=== PATIENT | female | born 2000 | race Caucasian/White ===

== ENCOUNTER 2020-07-16 23:04 | Emergency (ER) | payer MEDICAID, SELFPAY ==
[2020-07-16 23:05] VITALS: BP 108/74; PULSE 100; RESP 20; TEMP 36.8; O2SAT 100; BMI 22.6
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
[2020-07-17] MEDS: Cyclobenzaprine HCl 10 MG TABLET PO (00:26)
[2020-07-17] MEDS: LORazepam 0.5 MG TABLET PO (00:27)
== END 2020-07-17 00:43 | disposition home or self-care (01) ==
PROVIDERS: Emergency Provider Student in an Organized Health Care Education/Training Program
DX: S16.1XXA Strain of muscle, fascia and tendon at neck level, initial encounter (principal); M54.5 Low back pain; M54.2 Cervicalgia; X58.XXXA Exposure to other specified factors, initial encounter; Y93.9 Activity, unspecified; Y92.009 Unspecified place in unspecified non-institutional (private) residence as the place of occurrence of the external cause; Y99.9 Unspecified external cause status; Z79.899 Other long term (current) drug therapy
CPT/HCPCS: 99283; 99284

== ENCOUNTER 2020-11-23 21:10 | Emergency (ER) | payer MEDICAID, SELFPAY ==
[2020-11-23 21:15] VITALS: BP 128/60; PULSE 83; RESP 18; TEMP 36.6; O2SAT 100
[2020-11-23 21:34] VITALS: PULSE 82
--- NOTE | 2020-11-23 21:34 | PC.NURSE ---
Upon entering patient's room to perform triage assessment, patient left room to use bathroom. Ambulated with steady gait out of bed. already evaluated patient and reports that neuros are intact, speech is clear, and this RN witnessed steady ambulation. Per , pt has significant hx of panic attacks & anxiety . Will triage & perform RN evaluation upon return to ED bed.
[2020-11-23 21:42] VITALS: BP 117/71
[2020-11-23 21:45] VITALS: BP 127/74; PULSE 87
[2020-11-23 21:50] VITALS: BP 128/60; BP 131/68; PULSE 82; PULSE 83; RESP 16; RESP 18; TEMP 36.6; TEMP 37.1; O2SAT 100; O2SAT 99; BMI 22.6
[2020-11-23 21:57] LABS: MANUAL DIFF FLAG NO
[2020-11-23 21:58] LABS: Basophils Absolute Auto 0.1 X10*3/uL (0.0-0.2); Basophils Percent Auto 0.5 % (0-2); Eosinophils Absolute Auto 0.2 X10*3/uL (0.0-0.4); Eosinophils Percent Auto 1.4 % (0-4); Hematocrit 40.2 % (37-47); Hemoglobin 13.2 g/dl (12.0-16.0); Imm Gran Abs Auto 0.04 X10*3/uL (0.00-0.03); Imm Gran Pct Auto 0.4 % (0.0-0.4); Lymphocytes Absolute Auto 2.1 X10*3/uL (1.2-4.9); Lymphocytes Percent Auto 19.1 % (20-40); Mean Corpuscular HGB Conc 32.8 g/dl (31.0-35.0); Mean Corpuscular Hemoglobin 27.8 pg (27.0-33.0); Mean Corpuscular Volume 84.6 fL (80-98); Mean Platelet Volume 9.4 fL (9.4-12.3); Monocytes Absolute Auto 0.8 X10*3/uL (0.1-1.2); Monocytes Percent Auto 7.1 % (2-11); Neutrophils Absolute Auto 7.8 X10*3/uL (2.0-8.3); Neutrophils Percent Auto 71.5 % (45-73); Platelet Count 260 X10*3/uL (160-400); Red Blood Count 4.75 X10*6/uL (4.20-5.50); Red Cell Distribution Width 12.4 % (11.0-16.0); White Blood Count 10.9 X10*3/uL (4.8-10.8)
[2020-11-23 22:00] LABS: Glucose Urine UA NEG (NEG); Leukocyte Esterase Urine NEG (NEG); Nitrite Urine NEG (NEG); PH 7.5 (5.0-8.0); Urine Blood NEG (NEG); Urine Ketones NEG (NEG); Urine Protein NEG (NEG-TRACE)
[2020-11-23 22:01] LABS: Appearance Urine CLEAR; Color Urine YELLOW; UPreg QC Valid YES; Urine Pregnancy NEGATIVE (NEGATIVE)
[2020-11-23 22:19] LABS: Alanine Aminotransferase 11 U/L (0-31); Albumin Level 4.1 g/dL (3.5-5.0); Alkaline Phosphatase 62 U/L (39-117); Anion Gap 13 (12-20); Aspartate Amino Transferase 14 U/L (5-31); Bilirubin Total 0.3 mg/dL (0.0-1.0); Blood Urea Nitrogen 10 mg/dL (9-16); Carbon Dioxide 28 mmol/L (22-29); Chloride 102 mmol/L (96-108); Estimated Glomerular Filt Rate > 60; Glucose Random 92 mg/dL (60-115); Potassium 4.2 mmol/L (3.3-5.1); Sodium 139 mmol/L (135-145); Total Protein 6.9 g/dL (6.5-8.0)
[2020-11-23 22:39] LABS: TSH reflex Free T4 2.03 uIU/mL (0.32-4.0)
--- NOTE | 2020-11-23 23:01 | ED_ITS ---
HPI - Anxiety General Chief Complaint: Anxiety Stated Complaint: Stroke? Time Seen by Provider: 11/23/20 21:34 Source: patient and family (Mother) Mode of arrival: ambulatory History of Present Illness HPI narrative: This is a 20-year-old female with known panic disorder for 4 years who presents with tongue tip numbness/tingling, headache, and feeling as though she cannot move her left upper extremity but states that she is able to actually move it. She denies any recent notification of bad news but does states she suffers from a lot of stress at work. Patient denies any recent exposure to mistry/hiking, denies any burning associated along either side of her face with the tongue tingling. She denies any associated fevers, chills, visual blurriness/double vision, difficulty with speech. At this time patient states that she is already feeling better. Related Data Previous Rx's Medication Instructions Recorded cyclobenzaprine 10 mg PO TID PRN #14 tab 07/17/20 hydroxyzine HCl 50 mg PO BID PRN #14 tab 07/17/20 Allergies Allergy/AdvReac Type Severity Reaction Status Date / Time No Known Allergies Allergy Verified 07/16/20 23:09 Review of Systems Review of Systems: Pertinent positives and negatives as stated in HPI 10 point review of systems is otherwise negative. PMFSH Past Medical History Source: nursing notes reviewed Medical History No active medical problems Social History Social History Alcohol intake: never Smoking Status: Never smoker Advance Directives: No Advance Directives Information Provided: Yes Physical Exam Vital Signs: Vital Signs: Last Vital Signs Temp 97.8 F 11/23/20 21:50 Pulse 83 11/23/20 21:50 Resp 18 11/23/20 21:50 BP 128/60 11/23/20 21:50 Pulse Ox 100 11/23/20 21:50 Body Mass Index 22.6 VITAL SIGNS: Reviewed. GENERAL: Well developed, well nourished, in no acute distress. HEAD: Normocephalic/atraumatic, EYES: PERRLA, EOMI intact without pain, no nystagmus NOSE: Nares patent bilateral OROPHARYNX: no oral lesions noted, posterior pharynx clear NECK: Supple, no adenopathy LUNGS: Normal breath sounds. No adventitious sounds or accessory muscle use. SpO2<100> CARDIOVASCULAR: Regular rate and rhythm without noted murmurs ABDOMEN: Soft, non-tender, non-distended with bowel sounds. SKIN: Inspection of the skin reveals no rashes NEUROLOGIC: Alert and oriented x 4. Strength and sensation to light touch were grossly intact x 4, no facial asymmetry, cranial nerves 2-12 are grossly intact, cerebellar testing intact. Course Course Course Narrative: This is a 20-year-old female with history and clinical presentation most consistent with anxiety/panic attack that has already shown significant improvement and there is low clinical suspicion for any neurologic deficit at this time. On evaluation for any evidence of infectious, anemia, electrolyte, or thyroid dysfunction contributing to patient's presentation review of all investigations is negative for any acute findings. Discussed with patient at bedside and on re-evaluation she has had complete resolution of her symptoms will be discharged home in stable condition and encouraged to follow up with her primary care provider and have an open discussion regarding possible pharmacologic treatment interventions for her stress and anxiety regarding her work. MDM - Anxiety Lab Data Result diagrams: 11/23/20 21:49 11/23/20 21:49 Labs: Lab Results 11/23/20 11/23/20 11/23/20 Range/Units 21:49 21:49 21:49 WBC 10.9 H (4.8-10.8) X10*3/uL RBC 4.75 (4.20-5.50) X10*6/uL Hgb 13.2 (12.0-16.0) g/dl Hct 40.2 (37-47) % MCV 84.6 (80-98) fL MCH 27.8 (27.0-33.0) pg MCHC 32.8 (31.0-35.0) g/dl RDW 12.4 (11.0-16.0) % Plt Count 260 (160-400) X10*3/uL MPV 9.4 (9.4-12.3) fL Immature Gran % (Auto) 0.4 (0.0-0.4) % Neut % (Auto) 71.5 (45-73) % Lymph % (Auto) 19.1 L (20-40) % [place] % (Auto) 7.1 (2-11) % Eos % (Auto) 1.4 (0-4) % Baso % (Auto) 0.5 (0-2) % Lymph # (Auto) 2.1 (1.2-4.9) X10*3/uL [place] # (Auto) 0.8 (0.1-1.2) X10*3/uL Eos # (Auto) 0.2 (0.0-0.4) X10*3/uL Baso # (Auto) 0.1 (0.0-0.2) X10*3/uL Abs Immat Gran (auto) 0.04 H (0.00-0.03) X10*3/uL Absolute Neuts (auto) 7.8 (2.0-8.3) X10*3/uL Absolute Nucleated RBC 0.000 (0.0-0.012) X10*3/uL Nucleated RBC % (auto) 0.0 (0.0-0.2) /100WBC Sodium 139 (135-145) mmol/L Potassium 4.2 (3.3-5.1) mmol/L Chloride 102 (96-108) mmol/L Carbon Dioxide 28 (22-29) mmol/L Anion Gap 13 (12-20) BUN 10 (9-16) mg/dL Creatinine 0.78 (0.5-1.4) mg/dL Estim Creat Clear Calc TNP Estimated GFR > 60 Random Glucose 92 (60-115) mg/dL Calcium 9.0 (8.4-10.2) mg/dL Total Bilirubin 0.3 (0.0-1.0) mg/dL AST 14 (5-31) U/L ALT 11 (0-31) U/L Alkaline Phosphatase 62 (39-117) U/L Total Protein 6.9 (6.5-8.0) g/dL Albumin 4.1 (3.5-5.0) g/dL TSH 2.03 (0.32-4.0) uIU/mL Urine Color YELLOW Urine Appearance CLEAR Urine pH 7.5 (5.0-8.0) Ur Specific [place] 1.010 (1.005-1.025) Urine Protein NEG (NEG-TRACE) MG/DL Urine Glucose (UA) NEG (NEG) MG/DL Urine Ketones NEG (NEG) MG/DL Urine Blood NEG (NEG) Urine Nitrite NEG (NEG) Ur Leukocyte Esterase NEG (NEG) Urine Test (NEGATIVE) 11/23/20 Range/Units 21:49 WBC (4.8-10.8) X10*3/uL RBC (4.20-5.50) X10*6/uL Hgb (12.0-16.0) g/dl Hct (37-47) % MCV (80-98) fL MCH (27.0-33.0) pg MCHC (31.0-35.0) g/dl RDW (11.0-16.0) % Plt Count (160-400) X10*3/uL MPV (9.4-12.3) fL Immature Gran % (Auto) (0.0-0.4) % Neut % (Auto) (45-73) % Lymph % (Auto) (20-40) % [place] % (Auto) (2-11) % Eos % (Auto) (0-4) % Baso % (Auto) (0-2) % Lymph # (Auto) (1.2-4.9) X10*3/uL [place] # (Auto) (0.1-1.2) X10*3/uL Eos # (Auto) (0.0-0.4) X10*3/uL Baso # (Auto) (0.0-0.2) X10*3/uL Abs Immat Gran (auto) (0.00-0.03) X10*3/uL Absolute Neuts (auto) (2.0-8.3) X10*3/uL Absolute Nucleated RBC (0.0-0.012) X10*3/uL Nucleated RBC % (auto) (0.0-0.2) /100WBC Sodium (135-145) mmol/L Potassium (3.3-5.1) mmol/L Chloride (96-108) mmol/L Carbon Dioxide (22-29) mmol/L Anion Gap (12-20) BUN (9-16) mg/dL Creatinine (0.5-1.4) mg/dL Estim Creat Clear Calc Estimated GFR Random Glucose (60-115) mg/dL Calcium (8.4-10.2) mg/dL Total Bilirubin (0.0-1.0) mg/dL AST (5-31) U/L ALT (0-31) U/L Alkaline Phosphatase (39-117) U/L Total Protein (6.5-8.0) g/dL Albumin (3.5-5.0) g/dL TSH (0.32-4.0) uIU/mL Urine Color Urine Appearance Urine pH (5.0-8.0) Ur Specific [place] (1.005-1.025) Urine Protein (NEG-TRACE) MG/DL Urine Glucose (UA) (NEG) MG/DL Urine Ketones (NEG) MG/DL Urine Blood (NEG) Urine Nitrite (NEG) Ur Leukocyte Esterase (NEG) Urine Test NEGATIVE (NEGATIVE) Discharge Plan Discharge Clinical Impression: Acute anxiety, Panic disorder Patient Disposition: Home, Self-Care Instructions: Anxiety (ED), Panic Disorder (ED), Panic Attack (ED) Additional Instructions: Please follow-up with your primary care provider at your earliest convenience. Do not hesitate to return to the emergency department for any acute worsening of your symptoms. Prescriptions: No Action hydroxyzine HCl 50 mg tablet 50 mg PO BID PRN (Reason: anxiety) Qty: 14 RF: 0 cyclobenzaprine 10 mg tablet 10 mg PO TID PRN (Reason: muscle spasm) Qty: 14 RF: 0 Referrals: [facility] [Primary Care Provider] - 2 days (Re-evaluation outpatient management for anxiety/panic disorder. Patient appears to be a good candidate for possible pharmacologic intervention.)
[2020-11-24] VITALS: BP 132/78; PULSE 73; RESP 18; TEMP 36.6; O2SAT 99
== END 2020-11-24 01:20 | disposition home or self-care (01) ==
PROVIDERS: Emergency Provider Student in an Organized Health Care Education/Training Program
DX: F41.9 Anxiety disorder, unspecified (principal); F41.0 Panic disorder [episodic paroxysmal anxiety]
CPT/HCPCS: 36415; 80053; 81003; 81025; 84443; 85025; 99284

== ENCOUNTER 2021-06-05 14:49 | Outpatient (REF) | payer MEDICAID, SELFPAY | END 2021-06-05 14:50 | disposition home or self-care (01) | LOC: HO.LAB 14:49 | PROVIDERS: Visit Provider Internal Medicine | DX: Z20.822 Contact with and (suspected) exposure to COVID-19 (principal) | CPT/HCPCS: U0003; U0005 ==

== ENCOUNTER 2021-06-16 12:14 | Outpatient (REF) | payer MEDICAID, SELFPAY | END 2021-06-16 12:15 | disposition home or self-care (01) | LOC: HO.LAB 12:14 | PROVIDERS: Visit Provider Internal Medicine | DX: Z20.822 Contact with and (suspected) exposure to COVID-19 (principal) | CPT/HCPCS: C9803; U0003; U0005 ==

== ENCOUNTER 2021-06-26 13:00 | Outpatient (REF) | payer MEDICAID, SELFPAY | END 2021-06-26 13:01 | disposition home or self-care (01) | LOC: HO.LAB 13:00 | PROVIDERS: Visit Provider Internal Medicine | DX: Z20.822 Contact with and (suspected) exposure to COVID-19 (principal) | CPT/HCPCS: U0003; U0005 ==